=== PATIENT | female | born 1975 | race African-American/Black ===

== ENCOUNTER → 2019-08-06 | Day surgery (SDC) | payer MEDICARE ==
[~2019-08-06] MED LIST: ABILIFY5 MG PO; ACETAMINOPHEN 1000 MG/100 ML IV ONE; CEFAZOLIN SOD 1 GM/NS 50ML 50 ML IV ONE; CEFDINIR125 MG/5 M; CLONAZEPAM0.5 MG PO; DEXAMETHASONE SOD PHOS INJ 4 MG/ML VIAL ONE; FENTANYL CITRATE/PF 100MCG/2 ML INJ ONE; LIDOCAINE HCL 2% LOCAL INJ 5 ML SDV VIAL INJ ONE; MELOXICAM7.5 MG PO; MEPERIDINE HCL INJ 25 MG/ML VIAL ONE; MIDAZOLAM HCL 2 MG/2 ML VIAL ONE; ONDANSETRON HCL INJ 2MG/ML 2ML 2 MG/ML VIAL ONE; PROPOFOL IV EMULSION 10 MG/ML 20 ML VIAL ONE; SEROQUEL25 MG PO; SEVOFLURANE INHAL SOLN 250 ML PEN BTL ONE; TYLENOL WITH C1 EACH PO
--- OUTSIDE RECORDS SUMMARY | 2019-08-06 05:34 | XMS REPORT ---
[facility] Phone Unavailable Care Team Providers Care [employer] Floor[employer] Specialist Name Role Phone Unavailable Unavailable Payers Payer Name Policy Type Policy Number Effective Date Expiration Date Problems This patient has no known problems. Allergies, Adverse Reactions, Alerts Allergy Name Allergy Type Status Severity Reaction(s) Onset Date Inactive Date Treating Clinician Comments No Known Allergies DA Active U 2016-07-13 00:00:00 Medications This patient has no known medications.
[2019-08-06 08:30] VITALS: BP 130/86
--- NOTE | 2019-08-06 13:37 | Operative Report ---
DATE OF PROCEDURE: 08/06/2019 SURGEON: Paulo Marion MD SCHOOL PSYCHOMETRIST: Jamil Banks, certified PA. PREOPERATIVE DIAGNOSIS: Displaced left 5th proximal phalanx fracture. POSTOPERATIVE DIAGNOSIS: Displaced left 5th proximal phalanx fracture. PROCEDURE: Closed reduction and percutaneous pin fixation, left 5th proximal phalanx. INDICATIONS: The patient is a 44-year-old lady, who has a completely displaced unstable fracture of her left 5th proximal phalanx. The findings and options have been discussed and we recommend a closed reduction and pinning. The risks and benefits were explained. She stated she understood and wished to proceed. PROCEDURE IN DETAIL: The patient was brought to the operating room and placed under general anesthetic. Her left upper extremity was prepped and draped in a sterile manner. A preoperative time-out was performed. A single 0.045 K-wire was placed from the distal aspect of the proximal phalanx and advanced across the fracture site and into the proximal fragment. A C-arm image intensifier was used to assist in placement of the pin. The bone structure was very small and I did not feel that it would be possible to place a second pin across the fracture site. Intraoperative x-rays confirmed satisfactory alignment and positioning of the pin. The pin was cut short and capped. A sterile bandage and an ulnar gutter splint were applied. There was no blood loss and all needle and sponge counts were correct. Paulo Marion MD DR/FLORA /[id number]
== END | disposition home or self-care (01) ==
LOC: OR 05:32
PROVIDERS: ATTEND Specialist
DX: S62.617A Displaced fracture of proximal phalanx of left little finger, initial encounter for closed fracture (principal); F31.9 Bipolar disorder, unspecified; F20.9 Schizophrenia, unspecified; F41.9 Anxiety disorder, unspecified; X50.9XXA Other and unspecified overexertion or strenuous movements or postures, initial encounter; Y99.8 Other external cause status; Z86.718 Personal history of other venous thrombosis and embolism
CPT/HCPCS: 26727; 81025; C1713; J0131; J0690; J1100; J2001; J2175; J2250; J2405; J2704; J3010; 76000